=== PATIENT | male | born 1995 | race Caucasian/White ===

== ENCOUNTER 2020-11-14 18:29 | Outpatient (REF) | payer MEDICAID, SELFPAY ==
[2020-11-15 11:57] LABS: COVID-19 RT-PCR UVMMC Result Negative (Negative)
== END 2020-11-14 18:30 | disposition home or self-care (01) ==
LOC: LBN 18:29
PROVIDERS: Visit Provider Physician Assistant Medical
DX: J02.9 Acute pharyngitis, unspecified (principal); Z20.822 Contact with and (suspected) exposure to COVID-19
CPT/HCPCS: U0003; 87070

== ENCOUNTER 2021-01-05 12:04 | Outpatient (REF) | payer MEDICAID, SELFPAY ==
[2021-01-06 15:29] LABS: COVID-19 RT-PCR UVMMC Result Negative (Negative)
== END 2021-01-05 12:05 | disposition home or self-care (01) ==
LOC: LBN 12:04
PROVIDERS: Visit Provider Physician Assistant Medical
DX: J02.9 Acute pharyngitis, unspecified (principal)
CPT/HCPCS: U0003; 87070

== ENCOUNTER 2021-02-06 16:57 | Outpatient (REF) | payer MEDICAID, SELFPAY ==
[2021-02-08 15:36] LABS: COVID-19 RT-PCR UVMMC Result Negative (Negative)
== END 2021-02-06 16:58 | disposition home or self-care (01) ==
LOC: LBN 16:57
PROVIDERS: Visit Provider Physician Assistant
DX: Z20.822 Contact with and (suspected) exposure to COVID-19 (principal); J06.9 Acute upper respiratory infection, unspecified
CPT/HCPCS: U0003

== ENCOUNTER 2023-06-13 17:37 | Outpatient (REF) | payer MEDICAID, SELFPAY | END 2023-06-13 17:38 | disposition home or self-care (01) | LOC: LBN 17:37 | PROVIDERS: Visit Provider Physician Assistant Medical | DX: J10.1 Influenza due to other identified influenza virus with other respiratory manifestations (principal); R07.0 Pain in throat | CPT/HCPCS: 87070 ==